=== PATIENT | male | born 1980 | race Caucasian/White ===

== ENCOUNTER 2018-04-15 18:59 | Emergency (ER) | payer OTHER ==
[2018-04-15 19:07] VITALS: BP 153/98; PULSE 128; TEMP 99.5; BMI 29.9
[2018-04-15] MEDS ORDERED: KETOROLAC TROMETHAMINE 60 MG/2 ML VIAL IM ONE (19:28)
--- NOTE | 2018-04-15 19:32 | PDOC ---
History of Present Illness - General Chief Complaint: Pain, Acute Stated Complaint: LEFT KNEE PAIN Time Seen by Provider: 04/15/18 19:17 - History of Present Illness Initial Comments: 04/15/18 20:12 Chief complaint: Left knee pain History of present illness: Working on his knees without protection on Friday, that night developed pain in the lateral posterior knee. No acute trauma. No distal numbness tingling pain or weakness. Review of systems: No other joints with symptoms. No fever/chills, headache, URI symptoms, sore throat, cough, chest pain, shortness of breath, abdominal pain, nausea, vomiting, diarrhea, rash. Past medical history: Occasional gout, none recently. Took colchicine without relief when this pain started. Otherwise negative Social/family history. Denies excessive alcohol, any use of tobacco or drugs, family history is noncontributory Physical exam: Alert and oriented well-developed well-nourished no acute distress cooperative Afebrile, vital signs normal HEENT clear Neck supple without bruit mass or nodes Chest clear CV regular without murmur rub or gallop Abdomen benign Extremities: There is point tenderness over the insertion of the posterior lateral tendons on the femur. There is no effusion. No deformity. No ligament stress tenderness or laxity. No joint space tenderness. Distal pulses are full. No distal sensory or motor deficits. No erythema or warmth Impression: Tendinitis from kneeling for extended period of time Plan: Anti-inflammatories, Garry, rest, ice, and follow-up. Patient has an appointment with his orthopedist Dr. Perez tomorrow and will recheck then. Fully ambulatory and in no significant pain or other distress upon discharge to follow-up as directed Past History - Past Medical History Allergies/Adverse Reactions: Allergies Allergy/AdvReac Type Severity Reaction Status Date / Time No Known Allergies Allergy Verified 04/15/18 19:00 Home Medications: Ambulatory Orders Diclofenac Sodium 75 mg PO Q12H #14 tablet. 04/15/18 COPD: No Other medical history: GOUT - Suicide/Smoking/Psychosocial Hx Smoking History: Never smoked Hx Alcohol Use: No Drug/Substance Use Hx: No Substance Use Type: None *Physical Exam - Vital Signs Last Vital Signs Temp Pulse Resp BP Pulse Ox 99.5 F 128 H 18 153/98 100 04/15/18 19:00 04/15/18 19:00 04/15/18 19:00 04/15/18 19:00 04/15/18 19:00 *DC/Admit/Observation/Transfer Diagnosis at time of Disposition: Knee strain Qualifiers: Encounter type: initial encounter Laterality: left Qualified Code(s): S86.912A - Strain of unspecified muscle(s) and tendon(s) at lower leg level, left leg, initial encounter - Discharge Dispostion Disposition: HOME Condition at time of disposition: Stable Decision to Admit order: No - Prescriptions Prescriptions: Diclofenac Sodium 75 mg PO Q12H #14 tablet.dr - Referrals - Patient Instructions Printed Discharge Instructions: How to Use an Elastic Bandage-Knee Sprain, DI for Knee Sprain Additional Instructions: Rest Garry wrap ice elevate medication as directed See Dr. Perez as scheduled tomorrow for further evaluation and treatment. - Post Discharge Activity Forms/Work/School Notes: Back to Work
[2018-04-15] MEDS ORDERED: KETOROLAC TROMETHAMINE 60 MG/2 ML VIAL ONE (19:35)
== END 2018-04-15 19:41 | disposition home or self-care (01) ==
LOC: FER 18:59
PROC: 3E0233Z Introduction of Anti-inflammatory into Muscle, Percutaneous Approach (ICD-10-PCS; principal; 2018-04-15)
DX: S86.912A Strain of unspecified muscle(s) and tendon(s) at lower leg level, left leg, initial encounter (principal); X58.XXXA Exposure to other specified factors, initial encounter; Y93.89 Activity, other specified; Y92.9 Unspecified place or not applicable
CPT/HCPCS: 99282-25